=== PATIENT | male | born 1995 | race Caucasian/White ===

== ENCOUNTER 2017-07-28 22:56 | Emergency (ER) | payer BC ==
[2015-10-14 14:19] VITALS: Ht 182.9 cm; Wt 108.9 kg
[~2017-07-28] VITALS: Ht 182.9 cm; Wt 108.9 kg
[~2017-07-28 22:56] MED LIST: AMPH20TA18 PO; AMPH30TA10 PO; CHOL10005 PO; CITA-141 PO; CITA-156 PO; DIPH-740 PO; HYDR-4228 PO; HYDR25CA83 PO; IBUP800T37 PO; LEVO25TA57 PO; LORA-1456 PO; MIRT-1 PO; MULT-1379 PO; NO MEDS; OMEG500C7 PO; TRAZ-156 PO
--- NOTE | 2017-07-28 23:28 | ER Report ---
History and Physical Time Seen By MD: 23:20 Hx. of Stated Complaint: patient was cutting tomatos and cut his left thumb, patient states he has had a few drinks tonight. HPI/ROS CHIEF COMPLAINT: thumb laceration HISTORY OF PRESENT ILLNESS: This is a 21 year old male. He cut his left thumb while cutting tomatoes tonight. Normal movement. Normal sensation. Tetanus about 3-4 years ago. Allergies: Coded Allergies: No Known Drug Allergies (Verified , 07/28/17) Home Meds Reported Medications Citalopram Hydrobromide (CELEXA) 20 Mg Tablet, 40 MG PO QDAY, #30 TAB 10/16/15 Levothyroxine Sodium (SYNTHROID) 25 Mcg Tablet, 25 MCG PO QDAY 10/16/15 Multivits,-,Other Min (THERA-M) 1 Each Tablet, 1 EACH PO QDAY 08/28/14 Discontinued Reported Medications [place]-3 Fatty Acids (FISH OIL) 500 Mg Capsule, 1000 MG PO QDAY, CAPSULE 10/16/15 Discontinued Scripts Hydroxyzine Pamoate (VISTARIL) 25 Mg Capsule, 25 MG PO Q6H Y for ANXIETY, #30 CAPSULE Prov:ADDI ABREUP 12/10/15 Trazodone Hcl (TRAZODONE HCL) 50 Mg Tablet, 25-50 MG PO QHS Y for INSOMNIA, #15 TAB Prov:ADDI ABREU FILM CLEANER 07/05/15 Reviewed Nurses Notes: Yes Hx Smoking: Yes (1/2 PPD) Smoking Status: Current: Every Day Smoker Exposure to Second Hand Smoke?: Yes Hx Substance Use Disorder: Yes (THC) Hx Alcohol Use: Yes (A 40/DAY OF BEER) Constitutional Vital Sign - Last 24 Hours 07/28/17 07/29/17 23:01 00:22 Temp 97.8 Pulse 107 85 Resp 24 16 B/P (MAP) 143/95 132/85 (101) Pulse Ox 94 96 Physical Exam General: Alert, no acute distress. Skin: laceration 2cm over proximal dorsal thumb. Musculoskeletal: No tendon compromise. Neuro: Mild numbness of thumb tip. Normal strength. Cardiovascular: Normal capillary refill. Medical Decision Making ED Course/Re-evaluation ED Course Procedure: Laceration Repair Verbal consent from patient after discussing repair options, risks and benefits. Wound cleaned extensively with Hibiclens and saline. Anesthesia: Local 1% lidocaine without epinephrine and 0.5% bupivacaine without epinephrine. Location: dorsal left thumb, proximal phalanx area. Length: 2 cm. Character: linear into subcutaneous. There were no deep structures involved. No tendon injury was identified. Wound repair: running 4-0 ethilon suture. The wound repair was simple and performed by myself. Wound care instructions discussed. Sutures need to be removed in 7 days. Decision to Disposition Date: Jul 29, 2017 Decision to Disposition Time: 00:14 Depart Departure Latest Vital Signs Vital Signs Date Time Temp Pulse Resp B/P (MAP) Pulse Ox O2 Delivery O2 Flow Rate FiO2 07/29/17 00:22 85 16 132/85 (101) 96 07/28/17 23:01 97.8 Impression: Primary Impression: Laceration of thumb, left Condition: Improved Disposition: HOME OR SELF-CARE Patient Instructions: Finger Laceration (ED) Additional Instructions: Wound Care: Wash the wound once a day with soap and water. Dry the wound and apply a small amount of antibiotic ointment with a clean dressing. If the dressing becomes wet or dirty, repeat cleaning and dressing as above. No soaking the wound; no swimming. Stitches need to be removed in 7 days. Pain Control: Use Tylenol or ibuprofen for pain. Using and ice pack can help reduce swelling. Problem Qualifiers Primary Impression: Laceration of thumb, left Encounter type: initial encounter Damage to nail status: without damage Foreign body presence: without foreign body Qualified Codes: S61.012A - Laceration without foreign body of left thumb without damage to nail, initial encounter SID TAYLOR MD Jul 28, 2017 23:28
[2017-07-29 00:22] VITALS: BP 132/85
== END 2017-07-29 00:37 | disposition home or self-care (01) ==
LOC: ER 23:20
DX: S61.012A Laceration without foreign body of left thumb without damage to nail, initial encounter (principal)
CPT/HCPCS: 99283

== ENCOUNTER 2017-12-14 09:24 | Emergency (ER) | payer BC ==
[2015-10-14 14:19] VITALS: Wt 108.9 kg
[2017-12-14] MEDS ORDERED: THIAMINE HCL(*) 200 MG/2 ML IN 100 MG, FOLIC ACID(*) 50 MG/10 ML INJ 1 MG, MULTIVITAMIN... IV ONE (09:29)
--- NOTE | 2017-12-14 09:37 | ER Report ---
History and Physical Time Seen By MD: 09:35 Hx. of Stated Complaint: ALCOHOL WITHDRAWAL. LAST DRINK YESTERDAY. HPI/ROS CHIEF COMPLAINT: Alcohol abuse HISTORY OF PRESENT ILLNESS: 22-year-old male who presents to the emergency department for alcohol detox and treatment. Patient has been seen in the emergency department before last visit was approximately year ago patient was unwilling to accept admission or treatment at this time. He states he's been continually drinking anywhere from a pint to a 5th of hard liquor daily. The only other drug he admits to is cannabis. Since stopping drinking he's been having increasing shakes agitation/anxiety. He denies any suicidal or homicidal ideation. He has not eaten in the last 36 hours. He states that he realizes he needs help from alcohol addiction at this time. REVIEW OF SYSTEMS: Constitutional: No fever, no chills. Agitation Eyes: No discharge. ENT: No sore throat. Cardiovascular: No chest pain, no palpitations. Respiratory: No cough, no shortness of breath. Gastrointestinal: No abdominal pain, no vomiting. Genitourinary: No hematuria. Musculoskeletal: No back pain. Skin: No rashes. Neurological: No headache. Psychiatric: Alcohol withdrawal, no suicidal or homicidal ideation. Allergies: Coded Allergies: No Known Drug Allergies (Verified , 12/14/17) Home Meds Reported Medications Propranolol Hcl (PROPRANOLOL HCL) 40 Mg Tablet, 40 MG PO ONCE Y for ANXIETY 12/14/17 Citalopram Hydrobromide (CELEXA) 20 Mg Tablet, 40 MG PO QDAY, #30 TAB 10/16/15 Levothyroxine Sodium (SYNTHROID) 25 Mcg Tablet, 25 MCG PO QDAY 10/16/15 Multivits,Th W-Fe,Other Min (THERA-M) 1 Each Tablet, 1 EACH PO QDAY 08/28/14 Past Medical/Surgical History Prior history for alcohol abuse, history of anxiety disorder and hypothyroidism Hx Smoking: Yes (1/2 PPD) Smoking Status: Current: Every Day Smoker Exposure to Second Hand Smoke?: Yes Hx Substance Use Disorder: Yes (THC) Hx Alcohol Use: Yes (A 40/DAY OF BEER, 10 DRINKS PER DAY) Constitutional Vital Sign - Last 24 Hours 12/14/17 12/14/17 09:29 11:17 Temp 97.6 98.2 Pulse 78 76 Resp 22 20 B/P (MAP) 162/102 132/75 (94) Pulse Ox 96 95 O2 Delivery Room Air Room Air Physical Exam General/Constitutional: Patient is awake, alert, increased psychomotor agitation no acute respiratory distress Head: Normocephalic and atraumatic. Eyes: Conjunctival clear, Pupils are equal and reactive to light. Extraocular muscles are intact and symmetrical. Sclera are clear and anicteric. Ears:External canals are clear. Tympanic membranes are clear with normal landmarks and light reflex. Nares: No rhinorrhea or bleeding. Turbinates are pink and moist. Oropharyngeal: Mucous membranes are noted for tacky saliva no odor of alcohol detected on breath Neck: Supple, no adenopathy. Cardiovascular: Heart is borderline bradycardic but regular no audible murmurs rubs or gallops Pulmonary: Lungs are clear to auscultation bilaterally. There are no wheezes, rales, or rhonchi. Chest rise is symmetrical Abdomen: Soft, nontender, no guarding or peritoneal signs. No Abuse Extremities: No gross deformities, No peripheral cyanosis. Able to move all 4 extremities. Neuro: Alert and oriented X3, Cranial nerves 2 thru 12 are intact and symmetrical. Patient has normal gait. Skin: No rashes, skin is diaphoretic. No jaundice Medical Decision Making Data Points Result Diagram: 12/14/17 0941 12/14/17 0941 Laboratory Hematology Test 12/14/17 09:27 12/14/17 09:41 Urine Color Straw Urine Clarity Clear Urine pH 6.0 pH (4.8-9.5) Urine Specific [place] 1.003 Urine Protein Negative mg/dL (NEGATIVE) Urine Glucose (UA) Negative mg/dL (NEGATIVE) Urine Ketones Negative mg/dL (NEGATIVE) Urine Blood Negative (NEGATIVE) Urine Nitrite Negative (NEGATIVE) Urine Bilirubin Negative (NEGATIVE) Urine Urobilinogen Negative mg/dL (0.2-1.9) Urine Leukocyte Esterase Negative (NEGATIVE) Urine RBC None /HPF (0-2/HPF) Urine WBC <1 /HPF (0-5/HPF) Urine Squamous Epithelial Cells None /LPF (</=FEW) Urine Bacteria Negative /HPF (NONE-FEW) Urine Mucus None /HPF (NONE-FEW) Urine Opiates Screen Negative Urine Barbiturates Screen Negative Ur Tricyclic Antidepressants Screen Negative Urine Phencyclidine Screen Negative Urine Amphetamines Screen Negative Urine Benzodiazepines Screen Negative Urine Cocaine Screen Negative Urine Cannabinoids Screen Positive Red Blood Count 5.43 M/uL (4.00-5.60) Mean Corpuscular Volume 88.5 fL (80.0-96.0) Mean Corpuscular Hemoglobin 31.3 pg (26.0-33.0) Mean Corpuscular Hemoglobin Concent 35.3 g/dL (32.0-36.0) Red Cell Distribution Width 14.6 % (11.5-14.5) Mean Platelet Volume 7.5 fL (7.2-11.1) Neutrophils (%) (Auto) 66.1 % (39.4-72.5) Lymphocytes (%) (Auto) 21.0 % (17.6-49.6) Monocytes (%) (Auto) 9.9 % (4.1-12.4) Eosinophils (%) (Auto) 2.0 % (0.4-6.7) Basophils (%) (Auto) 1.0 % (0.3-1.4) Nucleated RBC Relative Count (auto) 0.0 /100WBC Neutrophils # (Auto) 8.9 K/uL (2.0-7.4) Lymphocytes # (Auto) 2.8 K/uL (1.3-3.6) Monocytes # (Auto) 1.3 K/uL (0.3-1.0) Eosinophils # (Auto) 0.3 K/uL (0.0-0.5) Basophils # (Auto) 0.1 K/uL (0.0-0.1) Nucleated RBC Absolute Count (auto) 0.00 K/uL Sodium Level 140 mmol/L (137-145) Potassium Level 3.5 mmol/L (3.5-5.0) Chloride Level 100 mmol/L (98-107) Carbon Dioxide Level 24 mmol/L (22-30) Blood Urea Nitrogen 12 mg/dl (9-21) Creatinine 1.20 mg/dl (0.66-1.25) Glomerular Filtration Rate Calc > 60.0 Random Glucose 98 mg/dl (75-110) Calcium Level 10.0 mg/dl (8.4-10.2) Magnesium Level 2.1 mg/dl (1.7-2.2) Total Bilirubin 1.1 mg/dl (0.2-1.3) Aspartate Amino Transf (AST/SGOT) 32 U/L (0-35) Alanine Aminotransferase (ALT/SGPT) 42 U/L (0-56) Alkaline Phosphatase 120 U/L (0-126) Total Protein 8.0 gm/dl (6.3-8.2) Albumin 4.7 g/dl (3.5-5.0) Thyroid Stimulating Hormone (TSH) 2.12 uIU/ml (0.46-4.68) Salicylates Level < 10 mg/L Salicylate Last Dose Date unk Acetaminophen Level < 10 ug/ml Serum Alcohol < 10 mg/dl Chemistry Test 12/14/17 09:27 12/14/17 09:41 Urine Color Straw Urine Clarity Clear Urine pH 6.0 pH (4.8-9.5) Urine Specific [place] 1.003 Urine Protein Negative mg/dL (NEGATIVE) Urine Glucose (UA) Negative mg/dL (NEGATIVE) Urine Ketones Negative mg/dL (NEGATIVE) Urine Blood Negative (NEGATIVE) Urine Nitrite Negative (NEGATIVE) Urine Bilirubin Negative (NEGATIVE) Urine Urobilinogen Negative mg/dL (0.2-1.9) Urine Leukocyte Esterase Negative (NEGATIVE) Urine RBC None /HPF (0-2/HPF) Urine WBC <1 /HPF (0-5/HPF) Urine Squamous Epithelial Cells None /LPF (</=FEW) Urine Bacteria Negative /HPF (NONE-FEW) Urine Mucus None /HPF (NONE-FEW) Urine Opiates Screen Negative Urine Barbiturates Screen Negative Ur Tricyclic Antidepressants Screen Negative Urine Phencyclidine Screen Negative Urine Amphetamines Screen Negative Urine Benzodiazepines Screen Negative Urine Cocaine Screen Negative Urine Cannabinoids Screen Positive White Blood Count 13.4 k/uL (4.5-11.0) Red Blood Count 5.43 M/uL (4.00-5.60) Hemoglobin 17.0 g/dL (14.0-18.0) Hematocrit 48.1 % (42.0-52.0) Mean Corpuscular Volume 88.5 fL (80.0-96.0) Mean Corpuscular Hemoglobin 31.3 pg (26.0-33.0) Mean Corpuscular Hemoglobin Concent 35.3 g/dL (32.0-36.0) Red Cell Distribution Width 14.6 % (11.5-14.5) Platelet Count 480 K/uL (150-450) Mean Platelet Volume 7.5 fL (7.2-11.1) Neutrophils (%) (Auto) 66.1 % (39.4-72.5) Lymphocytes (%) (Auto) 21.0 % (17.6-49.6) Monocytes (%) (Auto) 9.9 % (4.1-12.4) Eosinophils (%) (Auto) 2.0 % (0.4-6.7) Basophils (%) (Auto) 1.0 % (0.3-1.4) Nucleated RBC Relative Count (auto) 0.0 /100WBC Neutrophils # (Auto) 8.9 K/uL (2.0-7.4) Lymphocytes # (Auto) 2.8 K/uL (1.3-3.6) Monocytes # (Auto) 1.3 K/uL (0.3-1.0) Eosinophils # (Auto) 0.3 K/uL (0.0-0.5) Basophils # (Auto) 0.1 K/uL (0.0-0.1) Nucleated RBC Absolute Count (auto) 0.00 K/uL Glomerular Filtration Rate Calc > 60.0 Calcium Level 10.0 mg/dl (8.4-10.2) Magnesium Level 2.1 mg/dl (1.7-2.2) Total Bilirubin 1.1 mg/dl (0.2-1.3) Aspartate Amino Transf (AST/SGOT) 32 U/L (0-35) Alanine Aminotransferase (ALT/SGPT) 42 U/L (0-56) Alkaline Phosphatase 120 U/L (0-126) Total Protein 8.0 gm/dl (6.3-8.2) Albumin 4.7 g/dl (3.5-5.0) Thyroid Stimulating Hormone (TSH) 2.12 uIU/ml (0.46-4.68) Salicylates Level < 10 mg/L Salicylate Last Dose Date unk Acetaminophen Level < 10 ug/ml Serum Alcohol < 10 mg/dl Toxicology Test 12/14/17 09:27 12/14/17 09:41 Urine Opiates Screen Negative Urine Barbiturates Screen Negative Ur Tricyclic Antidepressants Screen Negative Urine Phencyclidine Screen Negative Urine Amphetamines Screen Negative Urine Benzodiazepines Screen Negative Urine Cocaine Screen Negative Urine Cannabinoids Screen Positive Salicylates Level < 10 mg/L Salicylate Last Dose Date unk Acetaminophen Level < 10 ug/ml Serum Alcohol < 10 mg/dl Urinalysis Test 12/14/17 09:27 Urine Color Straw Urine Clarity Clear Urine pH 6.0 pH (4.8-9.5) Urine Specific [place] 1.003 Urine Protein Negative mg/dL (NEGATIVE) Urine Glucose (UA) Negative mg/dL (NEGATIVE) Urine Ketones Negative mg/dL (NEGATIVE) Urine Blood Negative (NEGATIVE) Urine Nitrite Negative (NEGATIVE) Urine Bilirubin Negative (NEGATIVE) Urine Urobilinogen Negative mg/dL (0.2-1.9) Urine Leukocyte Esterase Negative (NEGATIVE) Urine RBC None /HPF (0-2/HPF) Urine WBC <1 /HPF (0-5/HPF) Urine Squamous Epithelial Cells None /LPF (</=FEW) Urine Bacteria Negative /HPF (NONE-FEW) Urine Mucus None /HPF (NONE-FEW) EKG/Imaging EKG Interpretation EKG shows sinus bradycardia with a ventricular rate of approximately [address] segment or T-wave abnormalities noted. Monitor Interpretation: Sinus Bradycardia ED Course/Re-evaluation Clinical Indication for ER IV: Hydration, IV Access ED Course CIWA of 19; we will treat with benzodiazepines for acute alcohol withdrawal. Last drink occurred over 24 hours ago. Patient is willing to accept detox and potentially rehabilitation for his alcohol addiction. Patient is alert cooperative and nonviolent and agreeable to treatment. Re-evaluation 12/14/2017 11:39:56 am I spoke with behavior medicine regarding this patient who is at high risk for DTs and alcohol withdrawal. Patient willing to be admitted. Case was discussed history physical exam lab findings all pertinent data reviewed. Patient was accepted by for admission at this time Decision to Disposition Date: December 14, 2017 Decision to Disposition Time: 11:40 Depart Departure Latest Vital Signs Vital Signs Date Time Temp Pulse Resp B/P (MAP) Pulse Ox O2 Delivery O2 Flow Rate FiO2 12/14/17 11:17 98.2 76 20 132/75 (94) 95 Room Air Impression: Primary Impression: Acute alcohol dependence syndrome Condition: Improved DARIO GONZALEZ MD December 14, 2017 09:37
[2017-12-14] MEDS ORDERED: DIAZEPAM 10 MG TAB PO ONE (09:45)
[2017-12-14 09:47] LABS: PLATELET COUNT, AUTOMATED 480 K/uL (150-450)
[2017-12-14] MEDS ORDERED: PROP40TA45 PO (09:51)
--- NOTE | 2017-12-14 10:00 | EKG ---
FACILITY: [facility] PATIENT NAME: JILLIAN LEVI : [id number] MR: [id number] V: [id number] EXAM DATE: ORDERING PHYSICIAN: DARIO GONZALEZ TECHNOLOGIST: LAM Infante Reason : Blood Pressure : / mmHG Vent. Rate : 050 BPM Atrial Rate : 050 BPM P-R Int : 160 ms QRS Dur : 098 ms QT Int : 438 ms P-R-T Axes : 030 132 028 degrees QTc Int : 399 ms Sinus bradycardia with premature atrial complexes Right axis deviation Abnormal ECG When compared with ECG of 20-NOV-2015 12:03, premature atrial complexes are now present Vent. rate has decreased BY 30 BPM Confirmed by BRANDON MORALES ([id number]) on 12/14/2017 2:59:14 PM Referred By: CARLOS Confirmed By:BRANDON MORALES
[2017-12-14] MEDS ORDERED: LORazepam 2 MG/ML VIAL IVP ONE ×2 (10:15→11:10)
[2017-12-14 11:17] VITALS: BP 132/75
[2017-12-15] MEDS ORDERED: NICO-218 TD (10:42)
[2017-12-15] MEDS ORDERED: HYDR25CA83 PO (10:43)
== END 2017-12-14 11:42 ==
LOC: ER 09:28
DX: F10.239 Alcohol dependence with withdrawal, unspecified (principal); F12.10 Cannabis abuse, uncomplicated; R00.1 Bradycardia, unspecified; R94.31 Abnormal electrocardiogram [ECG] [EKG]
CPT/HCPCS: 80305; 80320; 80329; 81001; 83735; 84443; 85025; 93005; 96365; 96366; 96375; 96376; 99285; J2060; J3411; J3475; J7030; 82040; 82247; 82310; 82374; 82435; 82565; 82947; 84075; 84132; 84155; 84295; 84450; 84460; 84520

== ENCOUNTER 2017-12-14 10:55 | Inpatient (IN) | payer BC ==
[2015-10-14 14:19] VITALS: Ht 182.9 cm; Wt 108.9 kg
[~2017-12-14] VITALS: Ht 182.9 cm; Wt 108.9 kg
[~2017-12-14 10:55] MED LIST changes: +PROP40TA45 PO
[2017-12-14] MEDS ORDERED: MAG HYD/AL HYD/SIMETH 30ML UDC PO PRN (11:05)
[2017-12-14 11:55] VITALS: BP 112/82
[2017-12-14] MEDS: DIAZEPAM 10 MG TAB PO PRN ×2 (12:08→21:03)
[2017-12-14 16:58] VITALS: BP 126/90
[2017-12-14] MEDS: NICOTINE 21 MG/24 HR PATCH TD SCH (21:04)
[2017-12-15 01:12] VITALS: BP 120/80
[2017-12-15] MEDS ORDERED: LEVOTHYROXINE SOD 0.05 MG TAB PO SCH (06:00)
[2017-12-15 06:37] LABS: PLATELET COUNT, AUTOMATED 321 K/uL (150-450)
[2017-12-15 08:05] VITALS: BP 112/84
[2017-12-15] MEDS: NICOTINE 21 MG/24 HR PATCH TD SCH (08:38)
[2017-12-15] MEDS ORDERED: MULTIVITAMINS TAB PO SCH (09:00)
[2017-12-15] MEDS ORDERED: FOLIC ACID 1 MG TAB PO SCH (09:00)
[2017-12-15] MEDS ORDERED: CITALOPRAM HYDROBROM 20 MG TAB PO SCH (09:00)
[2017-12-15] MEDS ORDERED: THIAMINE HCL 100 MG TAB PO SCH (09:00)
[2017-12-15] MEDS: hydrOXYzine PAMOATE 25 MG CAP PO PRN ×2 (09:00→14:49)
[2017-12-15] MEDS ORDERED: NICO-218 TD (10:42)
[2017-12-15] MEDS ORDERED: HYDR25CA83 PO (10:43)
[2017-12-15] MEDS ORDERED: IBUPROFEN 600 MG TAB PO ONE (12:00)
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
== END 2017-12-15 16:15 | disposition home or self-care (01) | DRG 897 ==
LOC: BHS 10:55
PROVIDERS: ADMIT Psychiatry & Neurology Psychiatry; ATTEND Psychiatry & Neurology Psychiatry
DX: F10.230 Alcohol dependence with withdrawal, uncomplicated (principal); E03.9 Hypothyroidism, unspecified; F60.3 Borderline personality disorder; F12.29 Cannabis dependence with unspecified cannabis-induced disorder; Z62.811 Personal history of psychological abuse in childhood; Z91.5 Personal history of self-harm; Z81.8 Family history of other mental and behavioral disorders
CPT/HCPCS: 36415; 82040; 82247; 82310; 82374; 82435; 82565; 82947; 83735; 84075; 84132; 84155; 84295; 84450; 84460; 84520; 85025; Q0177

== ENCOUNTER → 2018-01-05 | Outpatient (REF) | payer BC ==
[2015-10-14 14:19] VITALS: BMI 28.5
[~2018-01-05] MED LIST changes: +NICO-218 TD
== END ==
LOC: ZZSENDIN 16:22
PROVIDERS: ATTEND Physician Assistant
DX: F10.20 Alcohol dependence, uncomplicated (principal)

== ENCOUNTER 2018-01-27 05:29 | Emergency (ER) | payer BC ==
[2015-10-14 14:19] VITALS: Wt 104.3 kg
[2018-01-27] MEDS ORDERED: FOLIC ACID 1 MG TAB PO ONE (05:45)
[2018-01-27] MEDS ORDERED: NS(*) 0.9% 1000 ML BAG 1,000 ML IV ONE ×3 (05:45→07:50)
[2018-01-27] MEDS ORDERED: fentaNYL CITR 100 MCG/2 ML AMP IVP ONE (05:45)
[2018-01-27] MEDS ORDERED: ONDANSETRON 4 MG/2 ML VIAL IVP ONE (05:45)
[2018-01-27] MEDS ORDERED: THIAMINE HCL 100 MG TAB PO ONE (05:45)
[2018-01-27] MEDS ORDERED: AMPH20TA18 PO (05:48)
[2018-01-27] MEDS ORDERED: DIAZEPAM 50 MG/10 ML MDV IVP ONE (05:55)
[2018-01-27 05:56] LABS: PLATELET COUNT, AUTOMATED 548 K/uL (150-450)
--- NOTE | 2018-01-27 06:14 | EKG ---
FACILITY: [facility] PATIENT NAME: JILLIAN LEVI : [id number] MR: [id number] V: [id number] EXAM DATE: ORDERING PHYSICIAN: AHMET HERMAN TECHNOLOGIST: Test Reason : Blood Pressure : / mmHG Vent. Rate : 061 BPM Atrial Rate : 079 BPM P-R Int : 124 ms QRS Dur : 078 ms QT Int : 408 ms P-R-T Axes : 036 089 071 degrees QTc Int : 410 ms Sinus rhythm with premature atrial complexes with junctional escape complexes Otherwise normal ECG When compared with ECG of 14-DEC-2017 09:54, Sinus rhythm is now with junctional escape complexes Nonspecific T wave abnormality no longer evident in Inferior leads Confirmed by BRANDON MORALES ([id number]) on 01/27/2018 6:25:23 AM Referred By: Confirmed By:BRANDON MORALES
[2018-01-27] MEDS ORDERED: IOPAMIDOL 76% 100 ML INFUS BTL 100 ML ONE (06:16)
--- NOTE | 2018-01-27 06:44 | ER Report ---
History and Physical Time Seen By MD: 06:36 Hx. of Stated Complaint: Pt experiencing NVD since yesterday. Bilateral back pain (AHMET THOMAS DO) HPI/ROS CHIEF COMPLAINT: Bilateral back pain, diaphoresis, subjective fevers, nausea, vomiting, diarrhea HISTORY OF PRESENT ILLNESS: Patient is a 22-year-old male here with complaints of bilateral back pain, diaphoresis, subjective fevers, nausea, vomiting, diarrhea for the past day. Patient also reports that his last alcohol beverage was approximately 2 days ago. He does drink on a regular basis. Patient is visibly diaphoretic at time of evaluation. Patient complains of nausea and dry heaves now that he has emptied his gastric contents.. Denies other medical issues. Patient denies prior surgeries to the abdomen. Patient denies headache, blurred vision, neck pain, chest pain, shortness breath, hematuria, melena. REVIEW OF SYSTEMS: Constitutional: + fever, + chills. Eyes: No discharge. ENT: No sore throat. Cardiovascular: No chest pain, no palpitations. Respiratory: No cough, no shortness of breath. Gastrointestinal: + diffuse abdominal pain/flank pain, + nausea and vomiting. Genitourinary: No hematuria. Musculoskeletal: + b/l back pain. Skin: No rashes. Neurological: No headache. (AHMET THOMAS DO) Allergies: Coded Allergies: No Known Drug Allergies (Verified , 12/14/17) Home Meds Reported Medications Amphet Asp/Amphet/D-Amphet (ADDERALL 20 MG TABLET) 20 Mg Tablet, 20 MG PO 01/27/18 Hydroxyzine Pamoate (VISTARIL) 25 Mg Capsule, 25-50 MG PO Q6H Y for ANXIETY, CAPSULE 12/15/17 Citalopram Hydrobromide (CELEXA) 20 Mg Tablet, 40 MG PO QDAY, #30 TAB 10/16/15 Levothyroxine Sodium (SYNTHROID) 25 Mcg Tablet, 50 MCG PO QDAY 10/16/15 Discontinued Reported Medications Nicotine (NICODERM CQ) 1 Each Patch.td24, 1 EACH TD 12/15/17 Multivits,Th W-Fe,Other Min (THERA-M) 1 Each Tablet, 1 EACH PO QDAY 08/28/14 Hx Smoking: Yes Smoking Status: Current: Every Day Smoker Exposure to Second Hand Smoke?: No Hx Substance Use Disorder: Yes (THC) Hx Alcohol Use: Yes (AHMET THOMAS DO) Constitutional Vital Sign - Last 24 Hours 01/27/18 01/27/18 01/27/18 01/27/18 05:34 05:34 05:44 05:47 Temp 98.2 Pulse 112 92 Resp 16 B/P (MAP) 145/101 145/101 (116) 139/118 (125) Pulse Ox 95 96 O2 Delivery Room Air 01/27/18 01/27/18 01/27/18 01/27/18 05:59 06:00 06:05 06:12 Pulse 104 70 B/P (MAP) 115/105 (108) 132/78 (96) Pulse Ox 98 97 01/27/18 06:20 Pulse 80 Resp 21 Pulse Ox 85 (RAVEN ALONZO MD) Physical Exam General Appearance: The patient is alert, has no immediate need for airway protection and no signs of toxicity. + moderate distress, + diaphoretic Eyes: Pupils equal and round no pallor or injection. ENT, Mouth: Mucous membranes are moist. Respiratory: There are no retractions, lungs are clear to auscultation. Cardiovascular: Regular rate and rhythm. Gastrointestinal: Abdomen is soft and + diffusely tender, no masses, bowel sounds normal. Neurological: No focal neuro deficits Skin: Warm and + diaphoretic, no rashes. Musculoskeletal: Neck is supple non tender. Extremities are nontender, nonswollen and have full range of motion. DIFFERENTIAL DIAGNOSIS: After history and physical exam differential diagnosis was considered for abdominal pain including but not limited to appendicitis, cholecystitis, gastritis and urinary tract infection. (AHMET THOMAS DO) Medical Decision Making Data Points Result Diagram: 01/27/18 0546 01/27/18 0546 Laboratory Hematology Test 01/27/18 05:46 01/27/18 08:56 Red Blood Count 6.16 M/uL (4.00-5.60) Mean Corpuscular Volume 87.0 fL (80.0-96.0) Mean Corpuscular Hemoglobin 30.6 pg (26.0-33.0) Mean Corpuscular Hemoglobin Concent 35.1 g/dL (32.0-36.0) Red Cell Distribution Width 14.0 % (11.5-14.5) Mean Platelet Volume 7.7 fL (7.2-11.1) Neutrophils (%) (Auto) 81.9 % (39.4-72.5) Lymphocytes (%) (Auto) 10.0 % (17.6-49.6) Monocytes (%) (Auto) 7.3 % (4.1-12.4) Eosinophils (%) (Auto) 0.2 % (0.4-6.7) Basophils (%) (Auto) 0.6 % (0.3-1.4) Nucleated RBC Relative Count (auto) 0.0 /100WBC Neutrophils # (Auto) 20.6 K/uL (2.0-7.4) Lymphocytes # (Auto) 2.5 K/uL (1.3-3.6) Monocytes # (Auto) 1.8 K/uL (0.3-1.0) Eosinophils # (Auto) 0.1 K/uL (0.0-0.5) Basophils # (Auto) 0.2 K/uL (0.0-0.1) Nucleated RBC Absolute Count (auto) 0.01 K/uL Peripheral Blood Smear Yes Y/N Urine Color Yellow Urine Clarity Turbid Urine pH 5.0 pH (4.8-9.5) Urine Specific [place] 1.030 Urine Protein 100 mg/dL (NEGATIVE) Urine Glucose (UA) Negative mg/dL (NEGATIVE) Urine Ketones 80 mg/dL (NEGATIVE) Urine Blood Negative (NEGATIVE) Urine Nitrite Negative (NEGATIVE) Urine Bilirubin Small (NEGATIVE) Urine Urobilinogen 2.0 mg/dL (0.2-1.9) Urine Leukocyte Esterase Negative (NEGATIVE) Urine RBC 2 /HPF (0-2/HPF) Urine WBC None /HPF (0-5/HPF) Urine Squamous Epithelial Cells None /LPF (</=FEW) Urine Bacteria Negative /HPF (NONE-FEW) Urine Mucus Few /HPF (NONE-FEW) Urine Yeast (Budding) Few /HPF Sodium Level 141 mmol/L (137-145) Potassium Level 4.1 mmol/L (3.5-5.0) Chloride Level 104 mmol/L (98-107) Carbon Dioxide Level 18 mmol/L (22-30) Blood Urea Nitrogen 8 mg/dl (9-21) Creatinine 1.20 mg/dl (0.66-1.25) Glomerular Filtration Rate Calc > 60.0 Random Glucose 134 mg/dl (75-110) Calcium Level 11.1 mg/dl (8.4-10.2) Total Bilirubin 1.5 mg/dl (0.2-1.3) Aspartate Amino Transf (AST/SGOT) 25 U/L (0-35) Alanine Aminotransferase (ALT/SGPT) 28 U/L (0-56) Alkaline Phosphatase 133 U/L (0-126) Total Protein 8.1 g/dl (6.3-8.2) Albumin 5.2 g/dl (3.5-5.0) Lipase 52 U/L (23-300) Lactate 1.7 mmol/L (0.7-2.1) Chemistry Test 01/27/18 05:46 01/27/18 08:56 White Blood Count 25.1 k/uL (4.5-11.0) Red Blood Count 6.16 M/uL (4.00-5.60) Hemoglobin 18.8 g/dL (14.0-18.0) Hematocrit 53.6 % (42.0-52.0) Mean Corpuscular Volume 87.0 fL (80.0-96.0) Mean Corpuscular Hemoglobin 30.6 pg (26.0-33.0) Mean Corpuscular Hemoglobin Concent 35.1 g/dL (32.0-36.0) Red Cell Distribution Width 14.0 % (11.5-14.5) Platelet Count 548 K/uL (150-450) Mean Platelet Volume 7.7 fL (7.2-11.1) Neutrophils (%) (Auto) 81.9 % (39.4-72.5) Lymphocytes (%) (Auto) 10.0 % (17.6-49.6) Monocytes (%) (Auto) 7.3 % (4.1-12.4) Eosinophils (%) (Auto) 0.2 % (0.4-6.7) Basophils (%) (Auto) 0.6 % (0.3-1.4) Nucleated RBC Relative Count (auto) 0.0 /100WBC Neutrophils # (Auto) 20.6 K/uL (2.0-7.4) Lymphocytes # (Auto) 2.5 K/uL (1.3-3.6) Monocytes # (Auto) 1.8 K/uL (0.3-1.0) Eosinophils # (Auto) 0.1 K/uL (0.0-0.5) Basophils # (Auto) 0.2 K/uL (0.0-0.1) Nucleated RBC Absolute Count (auto) 0.01 K/uL Peripheral Blood Smear Yes Y/N Urine Color Yellow Urine Clarity Turbid Urine pH 5.0 pH (4.8-9.5) Urine Specific [place] 1.030 Urine Protein 100 mg/dL (NEGATIVE) Urine Glucose (UA) Negative mg/dL (NEGATIVE) Urine Ketones 80 mg/dL (NEGATIVE) Urine Blood Negative (NEGATIVE) Urine Nitrite Negative (NEGATIVE) Urine Bilirubin Small (NEGATIVE) Urine Urobilinogen 2.0 mg/dL (0.2-1.9) Urine Leukocyte Esterase Negative (NEGATIVE) Urine RBC 2 /HPF (0-2/HPF) Urine WBC None /HPF (0-5/HPF) Urine Squamous Epithelial Cells None /LPF (</=FEW) Urine Bacteria Negative /HPF (NONE-FEW) Urine Mucus Few /HPF (NONE-FEW) Urine Yeast (Budding) Few /HPF Glomerular Filtration Rate Calc > 60.0 Calcium Level 11.1 mg/dl (8.4-10.2) Total Bilirubin 1.5 mg/dl (0.2-1.3) Aspartate Amino Transf (AST/SGOT) 25 U/L (0-35) Alanine Aminotransferase (ALT/SGPT) 28 U/L (0-56) Alkaline Phosphatase 133 U/L (0-126) Total Protein 8.1 g/dl (6.3-8.2) Albumin 5.2 g/dl (3.5-5.0) Lipase 52 U/L (23-300) Lactate 1.7 mmol/L (0.7-2.1) Urinalysis Test 01/27/18 05:46 Urine Color Yellow Urine Clarity Turbid Urine pH 5.0 pH (4.8-9.5) Urine Specific [place] 1.030 Urine Protein 100 mg/dL (NEGATIVE) Urine Glucose (UA) Negative mg/dL (NEGATIVE) Urine Ketones 80 mg/dL (NEGATIVE) Urine Blood Negative (NEGATIVE) Urine Nitrite Negative (NEGATIVE) Urine Bilirubin Small (NEGATIVE) Urine Urobilinogen 2.0 mg/dL (0.2-1.9) Urine Leukocyte Esterase Negative (NEGATIVE) Urine RBC 2 /HPF (0-2/HPF) Urine WBC None /HPF (0-5/HPF) Urine Squamous Epithelial Cells None /LPF (</=FEW) Urine Bacteria Negative /HPF (NONE-FEW) Urine Mucus Few /HPF (NONE-FEW) Urine Yeast (Budding) Few /HPF (RAVEN ALONZO MD) ED Course/Re-evaluation ED Course Patient is a 22-year-old male here with complaints of diaphoresis, nausea, vomiting, diarrhea, diffuse abdominal pain, bilateral flank pain. He denies hematuria, melena, chest pain or trouble breathing. He was noted to be diaphoretic at time of evaluation and does have history of regular alcohol use last drink was 2 days ago. He is actively vomiting and dry heaving at time of evaluation. Patient reports that this all started yesterday after eating and is concerned that he has food poisoning. Due to the patient's clinical presentation , CT abdomen and pelvis and chest x-ray were ordered. EKG showed sinus rhythm with PACs rate 61, QTC 410. He was given fluids, Zofran, thiamine, folic acid, diazepam for symptom support. (AHMET THOMAS DO) ED Course I took this patient over as if, however from Dr. Thomas. In summary this is a 22-year-old alcoholic daily drinker who presents to the emergency department with diffuse abdominal pain and nausea and vomiting. He admits to drinking less alcohol for the past 24 hours due to his symptoms. CT scan was unremarkable. His initial lactate was 4 by improved greatly after IV fluids. He is now able to take by mouth. He has a leukocytosis but no obvious evidence of an infection. I think this is a combination of a possible gastritis but also in combination with alcohol withdrawal. He has received Valium for tremors. He states that he feels much improved and is asking to leave the emergency department. I offered admission for detox, and I was worried if he started to drink alcohol again he would be back in the emergency department with the same symptoms. He does not want admission for detox, but states that he will find an outpatient rehabilitation group. Decision to Disposition Date: Jan 27, 2018 Decision to Disposition Time: 09:23 (RAVEN ALONZO MD) Depart Departure Latest Vital Signs Vital Signs Date Time Temp Pulse Resp B/P (MAP) Pulse Ox O2 Delivery O2 Flow Rate FiO2 01/27/18 06:20 80 21 85 01/27/18 06:12 132/78 (96) 01/27/18 05:34 98.2 Room Air (RAVEN ALONZO MD) Impression: Primary Impression: Alcohol withdrawal Additional Impression: Nausea and vomiting Condition: Improved Disposition: HOME OR SELF-CARE Patient Instructions: Acute Nausea and Vomiting (ED), Alcohol Dependence (ED) Problem Qualifiers Primary Impression: Alcohol withdrawal Complication of substance-induced condition: with unspecified complication Qualified Codes: F10.239 - Alcohol dependence with withdrawal, unspecified Additional Impression: Nausea and vomiting Vomiting type: unspecified Vomiting Intractability: non-intractable Qualified Codes: R11.2 - Nausea with vomiting, unspecified AHMET THOMAS DO Jan 27, 2018 06:44 RAVEN ALONZO MD Jan 27, 2018 09:26
[2018-01-27] MEDS ORDERED: CEFEPIME HCL 1 GM VIAL IVP ONE (07:00)
[2018-01-27] MEDS ORDERED: METOCLOPRAMIDE 10 MG/2 ML SDV IVP ONE (07:05)
--- NOTE | 2018-01-27 07:17 | RADIOLOGY IMAGING REPORT ---
FACILITY: [facility] PATIENT NAME: Tono Sun : 1995 MR: [id number] V: [id number] EXAM DATE: ORDERING PHYSICIAN: AHMET HERMAN TECHNOLOGIST: Location: [facility] Patient: Tono Sun : 1995 Visit/Account:[id number] Date of Sevice: 01/27/2018 ABDOMEN/PELVIS WITH CONTRAST HISTORY: Abdominal pain TECHNIQUE: Axial images were obtained through the abdomen and pelvis with intravenous contrast . One of the following dose optimization techniques was utilized in the performance of this exam: automate d exposure control; adjustment of the mA and/or kv according to patient size; or use of iterative rec onstruction technique. Specific details can be referenced in the facility's radiology CT exam operati onal policy. CONTRAST: 85 cc of Isovue-370 COMPARISON: None. FINDINGS: Visualized lung bases: Negative. Hepatobiliary: Negative. Spleen: Negative. Adrenals: Negative. Pancreas: Negative. Kidneys/ureters/bladder: Negative. Bowel/peritoneum/mesentery: Normal appendix. No bowel obstruction, free air or ascites. Colon is dec ompressed with submucosal fat. There is also submucosal fat within the distal small bowel. Vessels: Negative. Lymph nodes: Negative. Pelvic genitourinary: Negative. Bones/body wall: Negative. Other findings: None significant IMPRESSION: 1. Normal appendix. No acute inflammatory process identified. 2. Submucosal fat within the colon and distal small bowel. This is nonspecific but can be seen with c hronic inflammatory bowel disease but can also be a normal finding.. Report Dictated By: Kelton Stallings MD at 01/27/2018 7:08 AM Report E-Signed By: Kelton Stallings MD at 01/27/2018 7:14 AM WSN:[id number]
--- NOTE | 2018-01-27 07:18 | RADIOLOGY IMAGING REPORT ---
FACILITY: [facility] PATIENT NAME: Tono Sun : 1995 MR: [id number] V: [id number] EXAM DATE: ORDERING PHYSICIAN: AHMET HERMAN TECHNOLOGIST: Location: [facility] Patient: Tono Sun : 1995 Visit/Account:[id number] Date of Sevice: 01/27/2018 CHEST PA AND LAT HISTORY: Emesis. Malaise. COMPARISON: 11/20/2015 FINDINGS: Cardiomediastinal contours: Normal Lungs and pleura: Normal Bones/soft tissues: Normal Other findings: None significant IMPRESSION: 1. Normal chest. No change. Report Dictated By: Kelton Stallings MD at 01/27/2018 7:14 AM Report E-Signed By: Kelton Stallings MD at 01/27/2018 7:14 AM WSN:[id number]
[2018-01-27] MEDS ORDERED: NS(*) 0.9% 100 ML BAG 100 ML ONE (07:31)
[2018-01-27 09:05] VITALS: BP 147/73
== END 2018-01-27 10:00 | disposition home or self-care (01) ==
LOC: ER 05:40
DX: F10.230 Alcohol dependence with withdrawal, uncomplicated (principal); R11.2 Nausea with vomiting, unspecified
CPT/HCPCS: 36415; 71046; 74177; 81001; 83605; 83690; 85025; 87040; 93005; 96361; 96374; 96375; 99285; J0692; J2405; J2765; J3010; J3360; J7030; Q9967; 82040; 82247; 82310; 82374; 82435; 82565; 82947; 84075; 84132; 84155; 84295; 84450; 84460; 84520

== ENCOUNTER 2018-02-17 13:04 | Emergency (ER) | payer BC ==
[2015-10-14 14:19] VITALS: Wt 104.3 kg
[~2018-02-17 13:04] MED LIST changes: -TRAZ-156 PO; +TRAZ50TA34 PO
--- NOTE | 2018-02-17 13:27 | ER Report ---
History and Physical Time Seen By MD: 13:27 HPI/ROS Chief Concern: Alcohol withdrawal History of Present Illnesses: 22-year-old male presents to the emergency department in alcohol withdrawal. Reports that he can not recall how much alcohol he drank. Has tried to withdraw from alcohol before but was unsuccessful. Reports his arms are tingling and he is sweating significantly. Associated nausea and vomiting. Symptoms started today. No treatments tried. ROS: Constitutional: Denies recent illness, malaise, chills, fever. Reports diaphoresis. HEENT: Denies headache. No changes in vision. Cardiovascular: Denies chest pain, palpitations, or diaphoresis. Respiratory: Denies cough, shortness of breath, or wheezing. Gastrointestinal: Reports nausea and vomiting. Denies hematochezia, or black stools. Genitourinary: Denies changes in urination. Musculoskeletal: Denies muscular pain, no joint pain. Psychiatric: Denies thoughts of suicide. Allergies: Coded Allergies: No Known Drug Allergies (Verified , 12/14/17) Home Meds Reported Medications Amphet Asp/Amphet/D-Amphet (ADDERALL 20 MG TABLET) 20 Mg Tablet, 20 MG PO 01/27/18 Hydroxyzine Pamoate (VISTARIL) 25 Mg Capsule, 25-50 MG PO Q6H Y for ANXIETY, CAPSULE 12/15/17 Citalopram Hydrobromide (CELEXA) 20 Mg Tablet, 40 MG PO QDAY, #30 TAB 10/16/15 Levothyroxine Sodium (SYNTHROID) 25 Mcg Tablet, 50 MCG PO QDAY 10/16/15 Past Medical/Surgical History Past Medical History: Depression, anxiety (since age 7 years) Reviewed Nurses Notes: Yes Hx Smoking: Yes Smoking Status: Current: Every Day Smoker Exposure to Second Hand Smoke?: No Hx Substance Use Disorder: Yes (THC) Hx Alcohol Use: Yes Constitutional Vital Sign - Last 24 Hours 02/17/18 02/17/18 02/17/18 02/17/18 13:04 13:22 13:25 13:34 Temp 97.8 Pulse ??? 80 84 Resp 23 39 B/P (MAP) 150/113 (125) 150/113 Pulse Ox 97 95 O2 Delivery Room Air 02/17/18 02/17/18 02/17/18 02/17/18 14:00 14:04 14:09 14:30 Pulse ? B/P (MAP) ???/??? (1664) ???/??? (1664) 02/17/18 02/17/18 02/17/18 02/17/18 14:39 15:00 15:00 15:03 Temp 98.3 Pulse ??? 78 Resp 20 B/P (MAP) ???/??? (1664) 139/74 (95) Pulse Ox 93 O2 Delivery Room Air 02/17/18 15:09 Pulse ??? Physical Exam Constitutional: 22-year-old female, interactive, in no acute distress. Extremities warm to touch. Skin: [place] and well perfused BL. Diaphoretic. HEENT: Normocephalic and atraumatic. Eyes: Non-injected. No exudates. PERRLA. Corneas grossly intact. ENMT: Ears- symmetrical auricles with smooth skin; auricles aligned with the outer canthus of eye. TMs clear. Nose - symmetric, straight, and uniform in color. No nasal flaring. Cardiovascular: 2+ radial pulses BL equal. PMI - left midclavicular at the 5th ICS. Aortic, pulmonic, tricuspid, and mitral areas - clear S1/S2; no murmur, no S3, or S4. Respiratory: Respiratory Excursion BL equal and symmetrical; no presence of lag; quiet, rhythmic and effortless. No retractions. BL clear and equal. GI: Round, nondistended. normoactive BS x4, nontender. Musculoskeletal: Normal gait without limp. Muscles symmetric BL, active motion of all extremities. Neurologic: Alert and oriented x3. Language clear. Medical Decision Making Data Points Result Diagram: 02/17/18 1352 02/17/18 1352 Laboratory Hematology Test 02/17/18 13:25 02/17/18 13:52 Urine Color Yellow Urine Clarity Clear Urine pH 6.0 pH (4.8-9.5) Urine Specific [place] 1.019 Urine Protein Negative mg/dL (NEGATIVE) Urine Glucose (UA) Negative mg/dL (NEGATIVE) Urine Ketones 20 mg/dL (NEGATIVE) Urine Blood Negative (NEGATIVE) Urine Nitrite Negative (NEGATIVE) Urine Bilirubin Negative (NEGATIVE) Urine Urobilinogen 2.0 mg/dL (0.2-1.9) Urine Leukocyte Esterase Negative (NEGATIVE) Urine RBC <1 /HPF (0-2/HPF) Urine WBC <1 /HPF (0-5/HPF) Urine Squamous Epithelial Cells Few /LPF (</=FEW) Urine Bacteria Negative /HPF (NONE-FEW) Urine Mucus Few /HPF (NONE-FEW) Urine Opiates Screen Negative Urine Barbiturates Screen Negative Ur Tricyclic Antidepressants Screen Negative Urine Phencyclidine Screen Negative Urine Amphetamines Screen Negative Urine Benzodiazepines Screen Negative Urine Cocaine Screen Negative Urine Cannabinoids Screen Negative Red Blood Count 5.61 M/uL (4.00-5.60) Mean Corpuscular Volume 88.5 fL (80.0-96.0) Mean Corpuscular Hemoglobin 30.9 pg (26.0-33.0) Mean Corpuscular Hemoglobin Concent 34.9 g/dL (32.0-36.0) Red Cell Distribution Width 14.3 % (11.5-14.5) Mean Platelet Volume 7.7 fL (7.2-11.1) Neutrophils (%) (Auto) 74.6 % (39.4-72.5) Lymphocytes (%) (Auto) 17.8 % (17.6-49.6) Monocytes (%) (Auto) 5.8 % (4.1-12.4) Eosinophils (%) (Auto) 1.0 % (0.4-6.7) Basophils (%) (Auto) 0.8 % (0.3-1.4) Nucleated RBC Relative Count (auto) 0.1 /100WBC Neutrophils # (Auto) 12.4 K/uL (2.0-7.4) Lymphocytes # (Auto) 3.0 K/uL (1.3-3.6) Monocytes # (Auto) 1.0 K/uL (0.3-1.0) Eosinophils # (Auto) 0.2 K/uL (0.0-0.5) Basophils # (Auto) 0.1 K/uL (0.0-0.1) Nucleated RBC Absolute Count (auto) 0.02 K/uL Sodium Level 144 mmol/L (137-145) Potassium Level 3.5 mmol/L (3.5-5.0) Chloride Level 107 mmol/L (98-107) Carbon Dioxide Level 15 mmol/L (22-30) Blood Urea Nitrogen 8 mg/dl (9-21) Creatinine 1.00 mg/dl (0.66-1.25) Glomerular Filtration Rate Calc > 60.0 Random Glucose 138 mg/dl (75-110) Calcium Level 9.6 mg/dl (8.4-10.2) Magnesium Level 2.0 mg/dl (1.7-2.2) Total Bilirubin 0.7 mg/dl (0.2-1.3) Aspartate Amino Transf (AST/SGOT) 28 U/L (0-35) Alanine Aminotransferase (ALT/SGPT) 45 U/L (0-56) Alkaline Phosphatase 132 U/L (0-126) Total Protein 8.4 g/dl (6.3-8.2) Albumin 5.3 g/dl (3.5-5.0) Salicylates Level < 10 mg/L Salicylate Last Dose Date Unk Acetaminophen Level < 10 ug/ml Serum Alcohol < 10 mg/dl Chemistry Test 02/17/18 13:25 02/17/18 13:52 Urine Color Yellow Urine Clarity Clear Urine pH 6.0 pH (4.8-9.5) Urine Specific [place] 1.019 Urine Protein Negative mg/dL (NEGATIVE) Urine Glucose (UA) Negative mg/dL (NEGATIVE) Urine Ketones 20 mg/dL (NEGATIVE) Urine Blood Negative (NEGATIVE) Urine Nitrite Negative (NEGATIVE) Urine Bilirubin Negative (NEGATIVE) Urine Urobilinogen 2.0 mg/dL (0.2-1.9) Urine Leukocyte Esterase Negative (NEGATIVE) Urine RBC <1 /HPF (0-2/HPF) Urine WBC <1 /HPF (0-5/HPF) Urine Squamous Epithelial Cells Few /LPF (</=FEW) Urine Bacteria Negative /HPF (NONE-FEW) Urine Mucus Few /HPF (NONE-FEW) Urine Opiates Screen Negative Urine Barbiturates Screen Negative Ur Tricyclic Antidepressants Screen Negative Urine Phencyclidine Screen Negative Urine Amphetamines Screen Negative Urine Benzodiazepines Screen Negative Urine Cocaine Screen Negative Urine Cannabinoids Screen Negative White Blood Count 16.6 k/uL (4.5-11.0) Red Blood Count 5.61 M/uL (4.00-5.60) Hemoglobin 17.3 g/dL (14.0-18.0) Hematocrit 49.7 % (42.0-52.0) Mean Corpuscular Volume 88.5 fL (80.0-96.0) Mean Corpuscular Hemoglobin 30.9 pg (26.0-33.0) Mean Corpuscular Hemoglobin Concent 34.9 g/dL (32.0-36.0) Red Cell Distribution Width 14.3 % (11.5-14.5) Platelet Count 575 K/uL (150-450) Mean Platelet Volume 7.7 fL (7.2-11.1) Neutrophils (%) (Auto) 74.6 % (39.4-72.5) Lymphocytes (%) (Auto) 17.8 % (17.6-49.6) Monocytes (%) (Auto) 5.8 % (4.1-12.4) Eosinophils (%) (Auto) 1.0 % (0.4-6.7) Basophils (%) (Auto) 0.8 % (0.3-1.4) Nucleated RBC Relative Count (auto) 0.1 /100WBC Neutrophils # (Auto) 12.4 K/uL (2.0-7.4) Lymphocytes # (Auto) 3.0 K/uL (1.3-3.6) Monocytes # (Auto) 1.0 K/uL (0.3-1.0) Eosinophils # (Auto) 0.2 K/uL (0.0-0.5) Basophils # (Auto) 0.1 K/uL (0.0-0.1) Nucleated RBC Absolute Count (auto) 0.02 K/uL Glomerular Filtration Rate Calc > 60.0 Calcium Level 9.6 mg/dl (8.4-10.2) Magnesium Level 2.0 mg/dl (1.7-2.2) Total Bilirubin 0.7 mg/dl (0.2-1.3) Aspartate Amino Transf (AST/SGOT) 28 U/L (0-35) Alanine Aminotransferase (ALT/SGPT) 45 U/L (0-56) Alkaline Phosphatase 132 U/L (0-126) Total Protein 8.4 g/dl (6.3-8.2) Albumin 5.3 g/dl (3.5-5.0) Salicylates Level < 10 mg/L Salicylate Last Dose Date Unk Acetaminophen Level < 10 ug/ml Serum Alcohol < 10 mg/dl Toxicology Test 02/17/18 13:25 02/17/18 13:52 Urine Opiates Screen Negative Urine Barbiturates Screen Negative Ur Tricyclic Antidepressants Screen Negative Urine Phencyclidine Screen Negative Urine Amphetamines Screen Negative Urine Benzodiazepines Screen Negative Urine Cocaine Screen Negative Urine Cannabinoids Screen Negative Salicylates Level < 10 mg/L Salicylate Last Dose Date Unk Acetaminophen Level < 10 ug/ml Serum Alcohol < 10 mg/dl Urinalysis Test 02/17/18 13:25 Urine Color Yellow Urine Clarity Clear Urine pH 6.0 pH (4.8-9.5) Urine Specific [place] 1.019 Urine Protein Negative mg/dL (NEGATIVE) Urine Glucose (UA) Negative mg/dL (NEGATIVE) Urine Ketones 20 mg/dL (NEGATIVE) Urine Blood Negative (NEGATIVE) Urine Nitrite Negative (NEGATIVE) Urine Bilirubin Negative (NEGATIVE) Urine Urobilinogen 2.0 mg/dL (0.2-1.9) Urine Leukocyte Esterase Negative (NEGATIVE) Urine RBC <1 /HPF (0-2/HPF) Urine WBC <1 /HPF (0-5/HPF) Urine Squamous Epithelial Cells Few /LPF (</=FEW) Urine Bacteria Negative /HPF (NONE-FEW) Urine Mucus Few /HPF (NONE-FEW) ED Course/Re-evaluation ED Course 22-year-old male presents to the emergency department in moderate distress due to alcohol withdrawal. History and physical examination obtained. Laboratory tests suggest significant dehydration. The patient was administered 1000mls of NS and 2mg of Ativan administered in the Emergency Department today. The patient does state desire to stop drinking. The [facility] tech was called to his bedside to discuss voluntary admission. However, the patient refused our services. I encouraged the patient to seek medical attention to stop drinking and notified him that withdrawal can be deadly. He states understanding. He has further been encouraged to return to the emergency department if his condition worsens or if he has chest pain, difficulty breathing, or changes in thoughts/ memory. Decision to Disposition Date: Feb 17, 2018 Decision to Disposition Time: 14:52 Depart Departure Latest Vital Signs Vital Signs Date Time Temp Pulse Resp B/P (MAP) Pulse Ox O2 Delivery O2 Flow Rate FiO2 02/17/18 15:09 ??? 02/17/18 15:03 139/74 (95) 02/17/18 15:00 98.3 20 93 Room Air Impression: Primary Impression: Alcohol withdrawal Condition: Improved Disposition: HOME OR SELF-CARE Patient Instructions: Alcohol Dependence (ED) Additional Instructions: Avoid alcohol. Follow up with your counselor. Return to the ER if condition worsens. Follow up with your primary care provider in the early part of next week. Problem Qualifiers Primary Impression: Alcohol withdrawal Complication of substance-induced condition: uncomplicated Qualified Codes: F10.230 - Alcohol dependence with withdrawal, uncomplicated ADDI ABREU Feb 17, 2018 13:27
[2018-02-17] MEDS ORDERED: NS(*) 0.9% 1000 ML BAG 1,000 ML IV ONE (13:30)
[2018-02-17] MEDS ORDERED: ONDANSETRON 4 MG/2 ML VIAL IVP ONE (13:30)
[2018-02-17] MEDS ORDERED: LORazepam 2 MG/ML VIAL IVP ONE (13:40)
[2018-02-17] MEDS ORDERED: ONDANSETRON 4 MG/2 ML VIAL ONE (13:46)
[2018-02-17 14:07] LABS: PLATELET COUNT, AUTOMATED 575 K/uL (150-450)
--- NOTE | 2018-02-17 14:10 | EKG ---
[place] [facility] [place] NAME: JILLIAN LEVI : [id number] MR: [id number]: [id number] EXAM DATE: ORDERING PHYSICIAN: ADDI ABREU TECHNOLOGIST: Test Reason : Blood Pressure : / mmHG Vent. Rate : 062 BPM Atrial Rate : 062 BPM P-R Int : 170 ms QRS Dur : 082 ms QT Int : 478 ms P-R-T Axes : 059 112 048 degrees QTc Int : 485 ms Normal sinus rhythm with sinus arrhythmia Right axis deviation Prolonged QT Abnormal ECG Confirmed by INDIA JOHNS ([id number]) on 02/17/2018 9:53:05 PM Referred By: Confirmed By:INDIA JOHNS
[2018-02-17 15:03] VITALS: BP 139/74
== END 2018-02-17 15:08 | disposition home or self-care (01) ==
LOC: ER 13:18
DX: F10.239 Alcohol dependence with withdrawal, unspecified (principal); F17.210 Nicotine dependence, cigarettes, uncomplicated; F32.9 Major depressive disorder, single episode, unspecified; Z79.899 Other long term (current) drug therapy
CPT/HCPCS: 80305; 80320; 80329; 81001; 83735; 84443; 85025; 93005; 96374; 96375; 99284; J2060; J2405; J7030; 82040; 82247; 82310; 82374; 82435; 82565; 82947; 84075; 84132; 84155; 84295; 84450; 84460; 84520